=== PATIENT | male | born 1950 | race Caucasian/White ===

== ENCOUNTER 2017-11-26 06:01 | Day surgery (SDC) | payer MEDICARE ==
--- NOTE | 2017-11-22 18:56 | HP ---
CC: Dr. Mynor Carreon; Dr. Blake Blood * ADMISSION HISTORY AND PHYSICAL: DATE OF ADMISSION: 11/26/17 ATTENDING SURGEON: Dr. Farhat Cramer.* (DICTATED BY BRANDT EMMANUEL) CHIEF COMPLAINT: Right inguinal hernia. HISTORY OF PRESENT ILLNESS: This is a 67-year-old male with right inguinal hernia for at least the past few years. He had had a repair of the hernia as a teenager. Sometime in the past couple of years, he noticed a bulge in the right groin that has increased in size somewhat but not dramatically. He has been using a truss with some success, though would prefer to no longer have to use it. He does have to manually reduce the hernia before applying the truss. He has not had any symptoms to suggest incarceration or strangulation. He was seen in the office by Dr. Cramer on 11/07/17 at which time exam confirmed the presence of a reducible, mildly tender right apparent indirect inguinal hernia. The patient had undergone previous primary left herniorrhaphy in [address] Cramer discussed options with the patient including the indications, risks, benefits, and alternatives of repair. The patient would like to proceed as scheduled with open repair of right inguinal hernia with mesh. PAST MEDICAL HISTORY: 1. Atrial fibrillation (persistent after maze procedure but only on aspirin therapy). He is status post mitral valve replacement (porcine valve November 2005 and tricuspid valve repair at that same time). Atrial appendage was resected also at that time. 2. GERD. 3. Hypothyroidism (on replacement). 4. Hyperlipidemia. 5. BPH. 6. History of peptic ulcer disease (required transfusion and was treated for H. pylori without history of recurrence). 7. Subdural hematoma while anticoagulated, May 2016, requiring craniotomy. 8. He has left-sided paresthesias. His chart history indicates thoracic aortic ectasia. He is followed yearly by Dr. Blood. PAST SURGICAL HISTORY: Previous surgeries include: 1. Tonsillectomy and appendectomy, both remotely. 2. Prior hernia repairs as noted above. 3. Craniotomy for subdural hematoma. 4. Mitral valve replacement and tricuspid valve repair as well as maze procedure as noted above. CURRENT MEDICATIONS: 1. Metoprolol 25 mg 1-1/2 half tablets b.i.d. 2. Levothyroxine 25 mcg once daily. 3. Iferex 150 mg b.i.d. 4. Aspirin 81 mg once daily (the patient will continue perioperatively). 5. Tamsulosin 0.4 mg once daily. 6. Vitamin D 1000 IU once daily. 7. Multivitamin once daily. 8. Occasional garlic supplement (advised to hold preoperatively). DRUG ALLERGIES: DOXYCYCLINE (GI side effects), BIAXIN (GI side effects), RAMIPRIL (dry throat), LEVOFLOXACIN (tendinitis). FAMILY HISTORY: Negative for anesthesia problems, bleeding, or clotting disorder. SOCIAL HISTORY: The patient is . 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 He is a former smoker and quit in 1972 for a total of less than 7-pack-year history. He drinks alcohol occasionally but not daily. He denies other recreational drug use. REVIEW OF SYSTEMS: General: No recent constitutional symptoms or acute illnesses. Eyes: No recent changes. He does have regular exams. Ears, Nose, Throat: No recent changes. He does have some allergic rhinitis symptoms. Cardiovascular: No chest pain, palpitations. He is unsure if he still has paroxysmal atrial fibrillation. The patient takes metoprolol for rate control. Respiratory: No history of asthma, chronic cough, shortness of breath. GI: Minimal and infrequent GERD symptoms for which he uses [id number]-tji-lswydnz calcium carbonate p.r.n. No lower GI symptoms. Colonoscopy done within the past 10 years, normal exam. We recommended 10-year followup. : BPH, maintained on tamsulosin. No additional problems reported. Integument: No specific skin lesions or rashes or concern. Endocrine: He is on thyroid replacement. No history of diabetes. Hematological: History of iron deficiency anemia, though most recent hemoglobin was above 15. He does have lab work ordered for iron studies. Neuro: He does have paresthesias on the entire left side of his body including head and neck. He has been evaluated by Dr. Juárez from Neurology. Psychiatric: No problems reported. Remainder of review of systems is negative. PHYSICAL EXAMINATION GENERAL: Well-nourished, well-developed male, in no acute distress. VITAL SIGNS: Height 69 inches, weight 134 pounds, blood pressure 112/66, pulse 60 and regular, respirations 16, temperature 99.1. HEENT: Pupils are equal and round, reactive. EOMs intact. Conjunctivae pink. Oropharynx: Mucous membranes are moist. Teeth in good repair. He has a couple of permanent caps as well as crowns. No intraoral lesions noted. NECK: No lymphadenopathy or thyromegaly. No masses. LUNGS: Clear to auscultation. No rales or wheezes. HEART: Regular rate and rhythm. No murmur appreciated. Well-healed median sternotomy incision. ABDOMEN: Soft, nontender to palpation. No palpable masses or organomegaly. Well- healed bilateral inguinal scars from prior surgeries per Dr. Cramer's exam. GENITALIA: No other abnormalities of the external genitalia. RECTAL: Not done. No problems reported. BACK: No spinous process or CVA tenderness. EXTREMITIES: No edema. NEUROLOGICAL: Grossly intact, though he occasionally has some difficulty searching for words to express himself. He otherwise is oriented and has normal judgment. SKIN: Warm and dry. No suspicious rashes or lesions. IMPRESSION: Right inguinal hernia (recurrent). PLAN: Open repair, recurrent right inguinal hernia with mesh. BRANDT EMMANUEL [id number]/[facility] #: [id number] TISHA
[~2017-11-26 06:01] MED LIST: Buffered Lidocaine 0.9% SYRIN* 5 ML/SYR SYRINGE INTRADERM ONE; Famotidine TAB* 20 MG PO ONE
[2017-11-26] MEDS ORDERED: ceFAZolin 2 GM PREMIX (*) 2 GM/50 ML BAG IVPB ONE (06:06)
[2017-11-26] MEDS ORDERED: Famotidine TAB* 20 MG ONE (06:06)
[2017-11-26] MEDS ORDERED: Bupivacaine 0.25% SDV* 30 ML ONE (07:04)
[2017-11-26] MEDS ORDERED: Lidocain 1% EPI 1:100,000 * 30 ML MDV ONE (07:04)
[2017-11-26] MEDS ORDERED: fentaNYL* 50 MCG/ML 2 ML VIAL (100 MCG VIAL) ONE (07:26)
[2017-11-26] MEDS ORDERED: Midazolam* 1 MG/ML 5 ML VIAL (5 MG) ONE (07:26)
[2017-11-26] MEDS ORDERED: Ondansetron INJ* 2 MG/ML VIAL ONE (07:50)
[2017-11-26] MEDS ORDERED: Lidocaine 2% PF * 5 ML VIAL ONE (07:50)
[2017-11-26] MEDS ORDERED: Ketorolac INJ* 30 MG/ML 1 ML VIAL ONE (07:50)
[2017-11-26] MEDS ORDERED: Dexamethasone IV* 4 MG/ML 1 ML (4 MG) ONE (07:50)
[2017-11-26] MEDS ORDERED: Propofol* 10 MG/ML 20 ML BTL IV PUSH ONE (07:50)
[2017-11-26] MEDS ORDERED: Naloxone* 0.4 MG/ML 1 ML VIAL IV PRN (08:04)
[2017-11-26] MEDS ORDERED: Acetaminophen TAB* 325 MG PO PRN (08:04)
[2017-11-26] MEDS ORDERED: HYDROmorphone INJ* 1 MG/ML CARPUJECT SYRINGE IV PRN (08:04)
[2017-11-26 10:03] VITALS: BP 94/63
--- NOTE | 2017-11-27 00:03 | OP ---
CC: [facility]; Dr. Mynor Carreon, Internal Medicine* OPERATIVE REPORT: DATE OF OPERATION: 11/26/17 - [facility] DATE OF : 50 SURGEON: Farhat Cramer MD DELIVERY MANAGER: Renetta Flores NP ANESTHESIOLOGIST: Dr. Dominguez. ANESTHESIA: Local with monitored anesthesia care. PRE-OP DIAGNOSIS: Recurrent right inguinal hernia. POST-OP DIAGNOSIS: Recurrent right direct inguinal hernia. OPERATIVE PROCEDURE: Open repair with mesh of a recurrent right direct inguinal hernia. ESTIMATED BLOOD LOSS: Minimal. SPECIMENS: None. COMPLICATIONS: None. DRAINS: None. WOUND CLASSIFICATION: I. DESCRIPTION OF PROCEDURE: Written informed consent was obtained, the right groin was marked with indelible ink and preoperative antibiotics were administered. The patient was taken to the operating room, placed in the supine position. Sequential compression devices and warming blanket were applied. Anesthesia was administered in the right groin and lower abdomen were prepped and draped in the usual sterile fashion. Time-out verification was completed. A 0.25% Marcaine mixed with 1% lidocaine was then infiltrated in the right groin several fingerbreadths above the inguinal crease. The patient had a previous open primary repair many years ago and I made an oblique incision about a centimeter above the previous incision, carried this down through the subcutaneous tissue. We were able to identify sutures in the external oblique aponeurosis and this was opened sharply using a 15-blade knife. We were able to dissect the underlying spermatic cord of the external oblique aponeurosis. I did identify the iliohypogastric nerve and this was quite scarred and I did resect this up to the area laterally where it emerged from the muscle body and is far distally is possible. We were then able to work more medially and identified the spermatic cord and encircled this with a one quarter-inch [place] drain without difficulty. There was some scar tissue, but it was matured and there were some easily identifiable tissue planes as well. The spermatic cord was then dissected off what appeared to be a recurrent direct inguinal hernia, which was medial in the direct space of only about a 1.5 -cm in size. The hernia sac was down into the neck and it was easily reduced and I closed the scar tissue and fascial defect with 2 interrupted 0 Vicryl sutures. The spermatic cord and a vas deferens was identified and protected from injury. There did not appear to be an indirect inguinal hernia. Next, the ProGrip Covidien mesh was then placed and sutured to the pubic tubercle with an 0 Vicryl suture. It was then placed in usual fashion to cover the direct and indirect spaces. I sutured it to the conjoint tendon superiorly with several 0 Vicryl suture and also in one place to the inguinal ligament inferiorly. The mesh sat nicely, reconstructed the internal ring nicely, and covered the direct space. Hemostasis was then assured. The external oblique aponeurosis was closed with a running 3-0 Vicryl suture. The subcutaneous tissue was closed with a running 3-0 Vicryl suture. The skin was approximated with a subcuticular 4-0 Vicryl suture. Steri-Strips and sterile dressings were applied. The patient tolerated the procedure well, was taken to the recovery room in stable condition. [id number]/[facility] #: [id number] TISHA
== END 2017-11-26 10:24 | disposition home or self-care (01) ==
LOC: OR 06:01
PROVIDERS: ATTEND Surgery
DX: K40.91 Unilateral inguinal hernia, without obstruction or gangrene, recurrent (principal); I48.2 Chronic atrial fibrillation; Z79.82 Long term (current) use of aspirin; Z95.2 Presence of prosthetic heart valve; E03.9 Hypothyroidism, unspecified; E78.5 Hyperlipidemia, unspecified; Z86.73 Personal history of transient ischemic attack (TIA), and cerebral infarction without residual deficits
CPT/HCPCS: A9270-GY; C1781; J0690; J1100; J1885; J2250; J2405; J2704; J3010

== ENCOUNTER 2017-12-08 11:38 | Emergency (ER) | payer BC, MEDICARE ==
--- NOTE | 2017-12-08 12:13 | UC ---
Skin Complaint HPI - HPI Summary HPI Summary: 67 yo WM presents with tick bite to left flank that happened 1 week ago. Pt's removed the tick. He is here today because he still has a scab to the area and is concerned about this. Denies fever, chills, headache, joint pain/ swelling. - History of Current Complaint Time Seen by Provider: 12/08/17 12:12 Stated Complaint: TICK BITE Hx Obtained From: Patient Onset/Duration: Sudden Onset Skin Exposure Onset/Duration: Days Ago Current Severity: None - Allergy/Home Medications Allergies/Adverse Reactions: Allergies Allergy/AdvReac Type Severity Reaction Status Date / Time cat dander Allergy Severe sneezing, Verified 12/08/17 12:33 clarithromycin Allergy Severe GI Upset Verified 12/08/17 12:33 levofloxacin Allergy Severe Joint Pain Verified 12/08/17 12:33 doxycycline Allergy Intermediate Vomiting Verified 12/08/17 12:33 ramipril Allergy Intermediate Difficulty Verified 12/08/17 12:33 Swallowing PACER WIRES - NO MRI Allergy Severe See Comment Uncoded 12/08/17 12:33 Home Medications: Home Medications Iron,Carb/Vit C/Vit B12/Folic [Iron 100 Plus] 1.5 tab PO 12/08/17 [History] Review of Systems Constitutional: Negative Skin: Other - Tick bite Eyes: Negative ENT: Negative Respiratory: Negative Cardiovascular: Negative Gastrointestinal: Negative Neurovascular: Negative Neurological: Negative Psychological: Negative All Other Systems Reviewed And Are Negative: Yes PMH/Surg Hx/FS Hx/Imm Hx - Additional Past Medical History Additional PMH: BPH Endocrine History: Hypothyroidism Cardiovascular History: Hypertension Other History Of: Anticoagulant Therapy - Surgical History Surgical History: Yes Surgery Procedure, Year, and Place: hernia repair x2. valve replacement. carotid stent. tonsils in grade school. open heart surgery 10/2015 SUBDURAL EVACUATION 05/2016. CRANIOSTOMY MAY 2016 - Family History Known Family History: Negative: Cardiac Disease, Hypertension, Diabetes - Social History Occupation: Retired Lives: With Family Alcohol Use: Occasionally Substance Use Type: None Smoking Status (MU): Former Smoker Type: Cigarettes Amount Used/How Often: smoked for 7 years approx, less than 1 ppd every 3 days When Did the Patient Quit Smoking/Using Tobacco: 1972 - Immunization History Most Recent Influenza Vaccination: 04/2016 Most Recent Tetanus Shot: Unknown Most Recent Pneumonia Vaccination: Patient due to receive 09/2016 Physical Exam - Summary Physical Exam Summary: GENERAL: NAD. WDWN. No pain distress. SKIN: Left flank: there is a 2mm healing scab with no surrounding erythema or edema. No streaking, bleeding, or drainage. NECK: Supple. Nontender. No lymphadenopathy. CHEST: No accessory muscle use. Breathing comfortably and in no distress. CV: RRR. Without m/r/g. Pulses intact. Brisk cap refill. NEURO: Alert. CN II-XII grossly intact. PSYCH: Age appropriate behavior. Triage Information Reviewed: Yes Course/Dx - Course Course Of Treatment: Tick bite. Tick was removed at the time of bite 1 week ago. Bite site looks to be healing well. No treatment needed. - Diagnoses Provider Diagnoses: Tick bite left flank Discharge - Sign-Out/Discharge Documenting (check all that apply): Discharge/Admit/Transfer - Discharge Plan Condition: Stable Disposition: HOME Patient Education Materials: Tick Bite (ED) Referrals: Mynor Carreon MD [Primary Care Provider] - Additional Instructions: TICK BITE: You have been bitten by a tick. Once the tick is removed, these "bites" usually cause no problems. Tick fever, tick paralysis, [place] Spotted fever, and Lyme disease are uncommon -- but you should mention this tick bite to your doctor if you develop unusual symptoms in the next several weeks. If you develop any of the following, please see your physician promptly: (1) Fever, chills, or generalized malaise associated with a headache. (2) A red round area at the site of the bite (or elsewhere) (3) Joint pain, joint swelling or generalized weakness. (4) Redness, swelling, or drainage at the site of the bite. - Billing Disposition and Condition Condition: STABLE Disposition: HOME
[2017-12-08 12:33] VITALS: BP 107/67
== END 2017-12-08 12:45 | disposition home or self-care (01) ==
LOC: UCEAST 11:38
DX: S30.861A Insect bite (nonvenomous) of abdominal wall, initial encounter (principal); W57.XXXA Bitten or stung by nonvenomous insect and other nonvenomous arthropods, initial encounter; Y93.9 Activity, unspecified; Y92.9 Unspecified place or not applicable; E03.9 Hypothyroidism, unspecified; I10 Essential (primary) hypertension; N40.0 Benign prostatic hyperplasia without lower urinary tract symptoms; Z79.01 Long term (current) use of anticoagulants; Z95.2 Presence of prosthetic heart valve; Z95.5 Presence of coronary angioplasty implant and graft; Z87.891 Personal history of nicotine dependence; Z88.1 Allergy status to other antibiotic agents
CPT/HCPCS: 99211; G0463

== ENCOUNTER 2023-10-02 11:01 | Inpatient (IN) ==
[2023-10-02 13:32] LABS: ABS Basophils 0.1 10^3/uL (0.0-0.1); ABS Lymphocytes 0.6 10^3/uL (1.0-4.8); ABS Monocytes 0.5 10^3/uL (0.0-1.1); ABS Neutrophils 12.7 10^3/uL (1.5-7.6); ABS Nucleated RBC 0.01 10^3/ul; Eosinophil % 0.1 %; Hematocrit 41.2 % (38-53); Hemoglobin 13.9 g/dL (13.2-16.3); Lymphocyte % 4.6 %; Mean Corpuscular Hemoglobin 31.7 pg (27-33); Mean Corpuscular Hgb Conc 33.7 g/dL (31-36); Mean Corpuscular Volume 94.1 fL (80-97); Mean Platelet Volume 7.9 fL (7.5-11.2); Nucleated Red Blood Cells % 0.1 %/100WBC (0.0-0.8); Platelet Count 268 10^3/uL (150-450); Red Blood Count 4.38 10^6/uL (4.06-5.63); Red Cell Distribution Width 14.1 % (12-17); White Blood Count 14.1 10^3/uL (3.6-10.2)
[2023-10-02] MEDS: Metoprolol Tartrate 5 mg VIAL 5 ml VIAL (1 mg/ml) IV ONE (13:36)
[2023-10-02] MEDS: Iodixanol (CONTRAST) 320 MG/ML 100 ML SDV IV ONE (13:55)
[2023-10-02 14:06] LABS: Albumin/Globulin Ratio 0.9 (1-3); Calcium 8.7 mg/dL (8.6-10.3); Creatinine, Serum 0.48 mg/dL (0.67-1.17); Globulin 3.3 g/dL (2-4); Magnesium 1.8 mg/dL (1.9-2.7); Potassium 4.2 mmol/L (3.5-5.0); Total Bilirubin 0.9 mg/dL (0.2-1.0); Total Protein 6.3 g/dL (6.4-8.9)
[2023-10-02 14:15] LABS: TSH Ultra Thyroid Stim Horm 3.59 mcIU/mL (0.34-5.60)
[2023-10-02] MEDS: Lactated Ringers 1000 ml BAG 1,000 ML IV ONE (14:49)
[2023-10-02 15:30] LABS: High Sensitivity Troponin 1 Hr 29 pg/mL (<20)
[2023-10-02 17:29] LABS: Urine Appearance Clear; Urine Bilirubin Negative (Negative); Urine Blood Trace (Negative); Urine Color Light-Yellow; Urine Glucose Negative (Negative); Urine Ketones 1+ (Negative); Urine Nitrite Negative (Negative); Urine Protein Negative (Negative); Urine Specific Gravity 1.028 (1.002-1.030); Urine Urobilinogen Negative (Negative); Urine pH 7.5 (5.0-8.0)
[2023-10-03] MEDS: Metoprolol Tartrate 5 mg VIAL 5 ml VIAL (1 mg/ml) IV ONE (00:14)
[2023-10-03] MEDS: Enoxaparin 40 MG/0.4 ML SYR SUBCUT SCH (04:47)
[2023-10-03] MEDS ORDERED: Morphine 2 MG/ML SYRINGE IV PRN (04:59)
[2023-10-03] MEDS: Lidocaine PATCH 5% PATCH TRANSDERM SCH ×2 (05:23→06:20)
[2023-10-03 06:36] LABS: ABS Basophils 0.1 10^3/uL (0.0-0.1); ABS Eosinophils 0.1 10^3/uL (0.0-0.5); ABS Lymphocytes 0.7 10^3/uL (1.0-4.8); ABS Monocytes 0.7 10^3/uL (0.0-1.1); ABS Neutrophils 10.7 10^3/uL (1.5-7.6); ABS Nucleated RBC 0.01 10^3/ul; Eosinophil % 0.4 %; Hematocrit 41.3 % (38-53); Hemoglobin 14.1 g/dL (13.2-16.3); Lymphocyte % 5.5 %; Mean Corpuscular Hemoglobin 32.4 pg (27-33); Mean Corpuscular Hgb Conc 34.3 g/dL (31-36); Mean Corpuscular Volume 94.5 fL (80-97); Mean Platelet Volume 7.2 fL (7.5-11.2); Platelet Count 249 10^3/uL (150-450); Red Blood Count 4.36 10^6/uL (4.06-5.63); Red Cell Distribution Width 14.6 % (12-17); White Blood Count 12.2 10^3/uL (3.6-10.2)
[2023-10-03 07:23] LABS: Calcium 8.5 mg/dL (8.6-10.3); Creatinine, Serum 0.45 mg/dL (0.67-1.17); HDL Cholesterol 28.4 mg/dL; Magnesium 1.7 mg/dL (1.9-2.7); Phosphorus 2.5 mg/dL (2.5-5.0); Potassium 4.1 mmol/L (3.5-5.0); eGFR CKD-EPI 111.2 (>60)
[2023-10-03] MEDS: Magnesium Sulfate IV 1GM/100ML 1 GM/100 ML BAG IV ONE (08:38)
[2023-10-03] MEDS: Cholecalciferol (VIT D3) 1,000 unit TAB PO SCH (08:39)
[2023-10-03] MEDS: Aspirin EC 81 mg TAB.EC (enteric coated) PO SCH (08:39)
[2023-10-03 10:28] LABS: Folate 8.19 ng/mL (5.90-24.80)
[2023-10-03] MEDS: Metoprolol Tartrate 5 mg VIAL 5 ml VIAL (1 mg/ml) IV PRN (12:38)
[2023-10-03] MEDS: Albuterol HFA INHALER 8 gm MDI INH SCH (13:05)
[2023-10-03] MEDS ORDERED: Albuterol HFA INHALER 8 gm MDI INH PRN (20:56)
[2023-10-03] MEDS: Lactated Ringers 1000 ml BAG 1,000 ML IV SCH (23:22)
[2023-10-03] MEDS: Vancomycin 1,000 MG in NS 0.9% 250 ml 250 ML IVPB ONE (23:22)
[2023-10-04] MEDS: Metoprolol Tartrate 5 mg VIAL 5 ml VIAL (1 mg/ml) IV ONE ×2 (03:49→07:11)
[2023-10-04] MEDS ORDERED: Vancomycin per Pharmacy 1 EA NOTE FOLLOW UP SCH (05:00)
[2023-10-04 05:47] LABS: ABS Basophils 0.1 10^3/uL (0.0-0.1); ABS Lymphocytes 0.5 10^3/uL (1.0-4.8); ABS Monocytes 0.9 10^3/uL (0.0-1.1); ABS Neutrophils 17.4 10^3/uL (1.5-7.6); ABS Nucleated RBC 0.01 10^3/ul; Hematocrit 42.6 % (38-53); Hemoglobin 14.9 g/dL (13.2-16.3); Lymphocyte % 2.7 %; Mean Corpuscular Hemoglobin 32.6 pg (27-33); Mean Platelet Volume 7.6 fL (7.5-11.2); Nucleated Red Blood Cells % 0.1 %/100WBC (0.0-0.8); Platelet Count 271 10^3/uL (150-450); Red Blood Count 4.58 10^6/uL (4.06-5.63); Red Cell Distribution Width 14.5 % (12-17); White Blood Count 18.9 10^3/uL (3.6-10.2)
[2023-10-04 06:14] LABS: Calcium 8.6 mg/dL (8.6-10.3); Creatinine, Serum 0.47 mg/dL (0.67-1.17); Magnesium 1.8 mg/dL (1.9-2.7); Potassium 4.5 mmol/L (3.5-5.0); eGFR CKD-EPI 109.7 (>60)
[2023-10-04] MEDS: Vancomycin 1000 MG in NS 0.9% 250 ML IVPB SCH (08:24)
[2023-10-04] MEDS ORDERED: cefTRIAXone 1 gm/50 mL D5W 1 GM/50 ML BAG IV SCH (08:30)
[2023-10-04] MEDS: cefTRIAXone 2 gm/50 mL D5W 2 GM/50 ML BAG IV SCH (10:18)
[2023-10-04] MEDS: Magnesium Sulfate 2 gm BAG 2 GM/50 ML BAG IVPB ONE (11:16)
[2023-10-04] MEDS: Enoxaparin 60 MG/0.6 ML SYR SUBCUT ONE (16:11)
[2023-10-05] MEDS ORDERED: Vancomycin Trough Check NOTE FOLLOW UP ONE (07:30)
[2023-10-05 08:05] LABS: ABS Basophils 0.1 10^3/uL (0.0-0.1); ABS Lymphocytes 0.8 10^3/uL (1.0-4.8); ABS Monocytes 0.8 10^3/uL (0.0-1.1); ABS Neutrophils 10.3 10^3/uL (1.5-7.6); ABS Nucleated RBC 0.03 10^3/ul; Eosinophil % 0.2 %; Hematocrit 41.8 % (38-53); Hemoglobin 14.5 g/dL (13.2-16.3); Lymphocyte % 6.7 %; Mean Corpuscular Hemoglobin 32.1 pg (27-33); Mean Corpuscular Hgb Conc 34.7 g/dL (31-36); Mean Corpuscular Volume 92.6 fL (80-97); Mean Platelet Volume 7.7 fL (7.5-11.2); Nucleated Red Blood Cells % 0.2 %/100WBC (0.0-0.8); Platelet Count 274 10^3/uL (150-450); Red Blood Count 4.51 10^6/uL (4.06-5.63); Red Cell Distribution Width 14.6 % (12-17)
[2023-10-05] MEDS ORDERED: Flumazenil 0.5 mg/5 ml 0.1 MG/ML 5 ml VIAL ONE (08:08)
[2023-10-05] MEDS ORDERED: Midazolam 5 mg/5 ml VIAL 1 mg/ml 5 ml VIAL (5 mg) ONE (08:08)
[2023-10-05] MEDS ORDERED: Naloxone 0.4 mg VIAL 0.4 mg/ml 1 ml VIAL ONE (08:08)
[2023-10-05] MEDS ORDERED: fentaNYL 100 mcg/2 ml 50 MCG/ML VIAL ONE (08:08)
[2023-10-05] MEDS ORDERED: Naloxone 0.4 mg VIAL 0.4 mg/ml 1 ml VIAL IV PUSH PRN (08:21)
[2023-10-05] MEDS ORDERED: Flumazenil 0.5 mg/5 ml 0.1 MG/ML 5 ml VIAL IV PRN (08:21)
[2023-10-05 08:27] LABS: Calcium 8.5 mg/dL (8.6-10.3); Creatinine, Serum 0.45 mg/dL (0.67-1.17); Magnesium 1.9 mg/dL (1.9-2.7); Potassium 4.4 mmol/L (3.5-5.0); eGFR CKD-EPI 111.2 (>60)
[2023-10-05] MEDS ORDERED: Metoprolol Tartrate 5 mg VIAL 5 ml VIAL (1 mg/ml) ONE (08:48)
[2023-10-05] MEDS: fentaNYL 100 mcg/2 ml 50 MCG/ML VIAL IV SLOW PU ONE (08:55)
[2023-10-05] MEDS: Midazolam 10 mg/10 ml VIAL 1 mg/ml 10 ml VIAL (10 mg) IV SLOW PU ONE (08:56)
[2023-10-05] MEDS: guaiFENesin DM SUGAR FREE 100 MG/10 MG 5 ML UDC PO PRN (12:04)
[2023-10-05 13:12] LABS: Urine Osmo 476 mOsm/kg (150-1150)
[2023-10-05] MEDS: Enoxaparin 100 MG/ML SYR SUBCUT SCH (16:02)
[2023-10-05] MEDS: Iodixanol (CONTRAST) 320 MG/ML 100 ML SDV IV ONE (17:46)
[2023-10-05 18:11] LABS: ABS Lymphocytes 0.7 10^3/uL (1.0-4.8); ABS Monocytes 0.8 10^3/uL (0.0-1.1); ABS Neutrophils 14.2 10^3/uL (1.5-7.6); ABS Nucleated RBC 0.01 10^3/ul; Hematocrit 42.9 % (38-53); Lymphocyte % 4.6 %; Mean Corpuscular Hemoglobin 32.4 pg (27-33); Mean Corpuscular Volume 92.6 fL (80-97); Mean Platelet Volume 7.3 fL (7.5-11.2); Nucleated Red Blood Cells % 0.1 %/100WBC (0.0-0.8); Platelet Count 289 10^3/uL (150-450); Red Blood Count 4.63 10^6/uL (4.06-5.63); Red Cell Distribution Width 14.8 % (12-17); White Blood Count 15.8 10^3/uL (3.6-10.2)
[2023-10-05 18:25] LABS: Activated Partial Thrombo Time 39.2 seconds (26.0-38.0); INR 1.13 (0.83-1.13)
[2023-10-05 18:40] LABS: Albumin 3.2 g/dL (3.2-5.2); Albumin/Globulin Ratio 0.9 (1-3); Calcium 8.6 mg/dL (8.6-10.3); Creatinine, Serum 0.43 mg/dL (0.67-1.17); Globulin 3.4 g/dL (2-4); Potassium 4.6 mmol/L (3.5-5.0); Total Bilirubin 0.8 mg/dL (0.2-1.0); Total Protein 6.6 g/dL (6.4-8.9); eGFR CKD-EPI 112.7 (>60)
[2023-10-05 18:56] LABS: Osmolality Serum 266 mOsm/kg (275-295)
[2023-10-05 19:53] LABS: High Sensitivity Troponin 1 Hr 13 pg/mL (<20)
[2023-10-05] MEDS: Ure-Na 15 GM POWD.PACK PO SCH (21:00)
[2023-10-05] MEDS ORDERED: Sodium Bicarbonate 8.4% SYR 50 ml SYRINGE ONE (23:03)
[2023-10-05] MEDS ORDERED: EPINEPHrine SYR 0.1MG/ML 10 ml SYRINGE IV ONE (23:03)
[2023-10-05 23:35] LABS: Calcium 9.1 mg/dL (8.6-10.3); Creatinine, Serum 0.52 mg/dL (0.67-1.17); Potassium 5.1 mmol/L (3.5-5.0); eGFR CKD-EPI 106.4 (>60)
[2023-10-05] MEDS: Norepinephrine 4 MG/250mL D5W 4,000 MCG/250 ML BAG IV SCH (23:35)
[2023-10-06] MEDS: fentaNYL 100 mcg/2 ml 50 MCG/ML VIAL IV SLOW PU PRN (00:10)
[2023-10-06] MEDS: fentaNYL 100 mcg/2 ml 50 MCG/ML VIAL ONE (00:39)
[2023-10-06] MEDS: fentaNYL INFUSION 50 mcg/mL VL 2,500 MCG/50 ML VIAL IV SCH ×2 (00:51→09:09)
[2023-10-06 01:20] LABS: Resp Rate 18
[2023-10-06 01:22] LABS: PCO2 Arterial 45 mmHg (35-45); PO2 Arterial 263 mmHg (80-100)
[2023-10-06 01:23] LABS: Hematocrit 40.1 % (38-53); Hemoglobin 13.7 g/dL (13.2-16.3); Mean Corpuscular Hemoglobin 31.7 pg (27-33); Mean Corpuscular Hgb Conc 34.2 g/dL (31-36); Mean Corpuscular Volume 92.7 fL (80-97); Mean Platelet Volume 7.4 fL (7.5-11.2); Platelet Count 288 10^3/uL (150-450); Red Blood Count 4.33 10^6/uL (4.06-5.63); Red Cell Distribution Width 14.6 % (12-17); White Blood Count 31.8 10^3/uL (3.6-10.2)
[2023-10-06 01:36] LABS: Urine Appearance Turbid; Urine Bilirubin Negative (Negative); Urine Blood 3+ (Negative); Urine Color Yellow; Urine Glucose Negative (Negative); Urine Ketones Negative (Negative); Urine Nitrite Negative (Negative); Urine Protein 2+ (>=100 mg/dL) (Negative); Urine Specific Gravity 1.029 (1.002-1.030); Urine Urobilinogen Negative (Negative)
[2023-10-06] MEDS: Propofol 10 mg/ml 100 ML BTL 1,000 MG/100 ML BTL ONE (01:36)
[2023-10-06 01:40] LABS: Urine Bacteria 1+ /HPF (Absent); Urine Red Blood Cell 3+(>10/hpf) /HPF (0-Trace); Urine Squamous Epithelial Cell Present /HPF (Absent); Urine White Blood Cell 1+(6-10/hpf) /HPF (0-Trace)
[2023-10-06] MEDS: Propofol 10 mg/ml 100 ML BTL 1,000 MG/100 ML BTL IV SCH (01:43)
[2023-10-06] MEDS: Midazolam 5 mg/5 ml VIAL 1 mg/ml 5 ml VIAL (5 mg) IV SLOW PU ONE (02:07)
[2023-10-06 02:08] LABS: Albumin 2.7 g/dL (3.2-5.2); Albumin/Globulin Ratio 0.9 (1-3); Calcium 8.9 mg/dL (8.6-10.3); Creatinine, Serum 0.53 mg/dL (0.67-1.17); Globulin 2.9 g/dL (2-4); Potassium 4.5 mmol/L (3.5-5.0); Total Bilirubin 1.1 mg/dL (0.2-1.0); Total Protein 5.6 g/dL (6.4-8.9); eGFR CKD-EPI 105.8 (>60)
[2023-10-06 02:11] LABS: ABS Lymphocytes 0.5 10^3/uL (1.0-4.8); ABS Monocytes 0.8 10^3/uL (0.0-1.1); ABS Neutrophils 30.3 10^3/uL (1.5-7.6); ABS Nucleated RBC 0.02 10^3/ul; Eosinophil % 0.1 %; Lymphocyte % 1.7 %; Nucleated Red Blood Cells % 0.1 %/100WBC (0.0-0.8)
[2023-10-06] MEDS: Phenylephrine 40 mcg/mL 10mL (400mcg) SYRINGE IV PUSH PRN (02:20)
[2023-10-06] MEDS: VASOPRESSIN IVPREMIX BTL 40 UNIT/100 ML BTL IV SCH (02:34)
[2023-10-06] MEDS: NS 0.9% 1000 ml BAG 1,000 ML IV ONE (02:50)
[2023-10-06] MEDS: Midazolam 5 mg/5 ml VIAL 1 mg/ml 5 ml VIAL (5 mg) ONE (02:58)
[2023-10-06] MEDS: VASOPRESSIN IVPREMIX BTL 40 UNIT/100 ML BTL IV ONE (03:02)
[2023-10-06 03:06] LABS: INR 1.3 (0.83-1.13)
[2023-10-06] MEDS: Phenylephrine 40 mcg/mL 10mL (400mcg) SYRINGE ONE (03:07)
[2023-10-06 04:03] LABS: Hematocrit 38.7 % (38-53); Hemoglobin 13.7 g/dL (13.2-16.3); Mean Corpuscular Hemoglobin 32.9 pg (27-33); Mean Corpuscular Hgb Conc 35.4 g/dL (31-36); Mean Corpuscular Volume 92.9 fL (80-97); Mean Platelet Volume 7.5 fL (7.5-11.2); Platelet Count 326 10^3/uL (150-450); Red Blood Count 4.17 10^6/uL (4.06-5.63); Red Cell Distribution Width 14.6 % (12-17); White Blood Count 28.2 10^3/uL (3.6-10.2)
[2023-10-06 04:14] LABS: ABS Basophils 0.2 10^3/uL (0.0-0.1); ABS Lymphocytes 0.7 10^3/uL (1.0-4.8); ABS Monocytes 1.7 10^3/uL (0.0-1.1); ABS Neutrophils 25.6 10^3/uL (1.5-7.6); ABS Nucleated RBC 0.02 10^3/ul; Lymphocyte % 2.3 %; Nucleated Red Blood Cells % 0.1 %/100WBC (0.0-0.8)
[2023-10-06 04:29] LABS: High Sensitivity Troponin 1 Hr 2922 pg/mL (<20)
[2023-10-06 04:36] LABS: Calcium 8.7 mg/dL (8.6-10.3); Creatinine, Serum 0.49 mg/dL (0.67-1.17); Magnesium 1.8 mg/dL (1.9-2.7); Potassium 4.5 mmol/L (3.5-5.0); eGFR CKD-EPI 108.4 (>60)
[2023-10-06] MEDS: Iohexol 350 (CONTRAST) 500 ML MDV IV ONE (04:57)
[2023-10-06 05:56] LABS: Resp Rate 18
[2023-10-06 05:58] LABS: PCO2 Arterial 35 mmHg (35-45); PO2 Arterial 170 mmHg (80-100)
[2023-10-06] MEDS: Chlorhexidine MOUTHWASH 0.12% 15 ML UDC TOPICAL SCH (05:59)
[2023-10-06] MEDS: Pantoprazole VIAL 40 MG VIAL IV SCH (08:15)
[2023-10-06] MEDS: NS 0.9% 500 ml BAG 500 ML IV ONE ×2 (11:13→16:35)
[2023-10-06] MEDS: Metoprolol Tartrate 5 mg VIAL 5 ml VIAL (1 mg/ml) IV PRN (12:32)
[2023-10-06] MEDS: Magnesium Sulfate 2 gm BAG 2 GM/50 ML BAG IVPB ONE (13:23)
[2023-10-06 13:27] LABS: ABS Basophils 0.1 10^3/uL (0.0-0.1); ABS Eosinophils 0.1 10^3/uL (0.0-0.5); ABS Lymphocytes 1.6 10^3/uL (1.0-4.8); ABS Monocytes 1.1 10^3/uL (0.0-1.1); ABS Neutrophils 12.9 10^3/uL (1.5-7.6); ABS Nucleated RBC 0.03 10^3/ul; Eosinophil % 0.4 %; Hematocrit 37.1 % (38-53); Hemoglobin 12.6 g/dL (13.2-16.3); Lymphocyte % 10.1 %; Mean Corpuscular Hemoglobin 31.6 pg (27-33); Mean Corpuscular Volume 92.9 fL (80-97); Mean Platelet Volume 7.1 fL (7.5-11.2); Nucleated Red Blood Cells % 0.2 %/100WBC (0.0-0.8); Platelet Count 277 10^3/uL (150-450); Red Blood Count 3.99 10^6/uL (4.06-5.63); Red Cell Distribution Width 14.6 % (12-17); White Blood Count 15.7 10^3/uL (3.6-10.2)
[2023-10-06 14:19] LABS: Creatinine, Serum 0.5 mg/dL (0.67-1.17); Magnesium 1.7 mg/dL (1.9-2.7); Potassium 4.2 mmol/L (3.5-5.0); eGFR CKD-EPI 107.7 (>60)
[2023-10-06 15:37] LABS: Anaplasma phagocytophilum Negative (Negative); B. miyamotoi PCR, B Negative (Negative); Babesia divergens/MO-1 Negative (Negative); Babesia ducani Negative (Negative); Ehrlichia chaffeensis Negative (Negative); Ehrlichia ewingii/canis Negative (Negative); Ehrlichia muris eauclairensis Negative (Negative)
[2023-10-06] MEDS: Norepinephrine *QUAD STRENGTH* 16 mg/250 mL NS PREMIX (ICU ONLY) IV SCH ×2 (23:16→23:31)
[2023-10-07] MEDS: Lactated Ringers 1000 ml BAG 750 ML IV ONE (00:17)
[2023-10-07] MEDS: PHENYLEPHRINE DRIP IVPREMIX 50 MG/250 ML BAG IV SCH (01:52)
[2023-10-07] MEDS: NS 0.9% 1000 ml BAG 1,000 ML IV ONE (02:41)
[2023-10-07] MEDS: Hydrocortisone INJ 100 MG/2ML 2 ML VIAL IV SCH (03:11)
[2023-10-07 03:21] LABS: Urine Osmo 152 mOsm/kg (150-1150)
[2023-10-07 05:17] LABS: Hematocrit 38.6 % (38-53); Hemoglobin 13.4 g/dL (13.2-16.3); Mean Corpuscular Hemoglobin 32.1 pg (27-33); Mean Corpuscular Hgb Conc 34.7 g/dL (31-36); Mean Corpuscular Volume 92.5 fL (80-97); Mean Platelet Volume 7.4 fL (7.5-11.2); Platelet Count 241 10^3/uL (150-450); Red Blood Count 4.17 10^6/uL (4.06-5.63); Red Cell Distribution Width 15.1 % (12-17); White Blood Count 16.5 10^3/uL (3.6-10.2)
[2023-10-07] MEDS: Levothyroxine 100 MCG/5 ML VIAL IV SCH (05:31)
[2023-10-07 05:45] LABS: Calcium 7.8 mg/dL (8.6-10.3); Creatinine, Serum 0.44 mg/dL (0.67-1.17); Magnesium 1.8 mg/dL (1.9-2.7); Potassium 4.1 mmol/L (3.5-5.0); eGFR CKD-EPI 111.9 (>60)
[2023-10-07] MEDS: Magnesium Sulfate 2 gm BAG 2 GM/50 ML BAG IVPB ONE (06:09)
[2023-10-07] MEDS ORDERED: .Amiodarone 24HR ONLY IV Protocol Order Note IV ONE (08:17)
[2023-10-07] MEDS: Amiodarone 360 MG IVPREMIX 360 MG/200 ML BAG IV SCH ×3 (08:21→14:43)
[2023-10-07] MEDS: Amiodarone 150 mg IVPREMIX 150 MG/100 ML BAG IV ONE (08:38)
[2023-10-07] MEDS ORDERED: Sulfur Hexaflouride MICROSPHR 25 MG VIAL ONE (10:34)
[2023-10-08 04:46] LABS: Hematocrit 33.6 % (38-53); Hemoglobin 11.7 g/dL (13.2-16.3); Mean Corpuscular Hemoglobin 32.3 pg (27-33); Mean Corpuscular Hgb Conc 34.9 g/dL (31-36); Mean Corpuscular Volume 92.4 fL (80-97); Mean Platelet Volume 7.3 fL (7.5-11.2); Platelet Count 219 10^3/uL (150-450); Red Blood Count 3.64 10^6/uL (4.06-5.63); Red Cell Distribution Width 14.7 % (12-17)
[2023-10-08 06:19] LABS: Calcium 7.8 mg/dL (8.6-10.3); Creatinine, Serum 0.4 mg/dL (0.67-1.17); eGFR CKD-EPI 115.2 (>60)
[2023-10-08] MEDS ORDERED: Amiodarone 360 MG IVPREMIX 360 MG/200 ML BAG IV SCH (08:20)
[2023-10-08] MEDS: Heparin 5000 UNITS/ML 1 mL VIAL SUBCUT SCH (11:31)
[2023-10-09 05:04] LABS: Hematocrit 30.9 % (38-53); Hemoglobin 10.8 g/dL (13.2-16.3); Mean Corpuscular Hemoglobin 32.3 pg (27-33); Mean Corpuscular Hgb Conc 34.8 g/dL (31-36); Mean Corpuscular Volume 92.6 fL (80-97); Platelet Count 217 10^3/uL (150-450); Red Blood Count 3.33 10^6/uL (4.06-5.63); White Blood Count 15.5 10^3/uL (3.6-10.2)
[2023-10-09 05:50] LABS: Calcium 7.7 mg/dL (8.6-10.3); Creatinine, Serum 0.47 mg/dL (0.67-1.17); Magnesium 1.7 mg/dL (1.9-2.7); Potassium 4.1 mmol/L (3.5-5.0); eGFR CKD-EPI 109.7 (>60)
[2023-10-09] MEDS: Magnesium Sulf 4 GM/100 ML IV 4,000 MG/100 ML BAG IVPB ONE (10:55)
[2023-10-09] MEDS: Metoprolol Tartrate 5 mg VIAL 5 ml VIAL (1 mg/ml) IV PRN (11:23)
[2023-10-10 05:05] LABS: Hematocrit 30.3 % (38-53); Hemoglobin 10.7 g/dL (13.2-16.3); Mean Corpuscular Hgb Conc 35.2 g/dL (31-36); Mean Corpuscular Volume 93.7 fL (80-97); Mean Platelet Volume 7.2 fL (7.5-11.2); Platelet Count 182 10^3/uL (150-450); Red Blood Count 3.23 10^6/uL (4.06-5.63); White Blood Count 12.7 10^3/uL (3.6-10.2)
[2023-10-10 05:43] LABS: Calcium 7.8 mg/dL (8.6-10.3); Creatinine, Serum 0.4 mg/dL (0.67-1.17); Potassium 4.1 mmol/L (3.5-5.0); eGFR CKD-EPI 115.2 (>60)
[2023-10-10] MEDS: Polyethylene Glycol 3350 17 GM PACKET NG TUBE SCH (10:22)
[2023-10-10] MEDS: Senna TAB 8.6 mg TAB NG TUBE SCH (10:22)
[2023-10-10] MEDS: Furosemide 20 mg/2 ml IV VIAL IV SLOW PU ONE (10:23)
[2023-10-10] MEDS: Iohexol 300 (CONTRAST) 10 ML SDV IV ONE (15:44)
[2023-10-10] MEDS ORDERED: Dextran 70/Hypromellose Tears Eye Drops 15 ml BTL (for Artificials Tears) BOTH EYES PRN (17:37)
[2023-10-10] MEDS: Metoprolol Tartrate 5 mg VIAL 5 ml VIAL (1 mg/ml) IV PRN (19:36)
[2023-10-11] MEDS: Morphine 2 MG/ML SYRINGE IV PRN (00:46)
[2023-10-11 05:48] LABS: Hemoglobin 10.6 g/dL (13.2-16.3); Mean Corpuscular Hemoglobin 32.2 pg (27-33); Mean Corpuscular Hgb Conc 34.1 g/dL (31-36); Mean Corpuscular Volume 94.3 fL (80-97); Mean Platelet Volume 7.2 fL (7.5-11.2); Platelet Count 213 10^3/uL (150-450); Red Blood Count 3.29 10^6/uL (4.06-5.63); Red Cell Distribution Width 15.5 % (12-17); White Blood Count 12.4 10^3/uL (3.6-10.2)
[2023-10-11 06:43] LABS: Creatinine, Serum 0.37 mg/dL (0.67-1.17); Magnesium 1.8 mg/dL (1.9-2.7); Potassium 4.5 mmol/L (3.5-5.0)
[2023-10-11] MEDS: Magnesium Sulfate 2 gm BAG 2 GM/50 ML BAG IVPB ONE (09:33)
[2023-10-11 13:05] VITALS: BP 163/98
[2023-10-11] MEDS: Morphine 10 MG/ML VIAL (1 ml) ONE (14:50)
[2023-10-11] MEDS: Midazolam 5 mg/5 ml VIAL 1 mg/ml 5 ml VIAL (5 mg) ONE (14:51)
== END 2023-10-11 11:56 | disposition expired | DRG 91 ==
LOC: ED 11:01 → EDHOLD 11:01 → SUATTDRO 22:53 → MED 10-03 11:00 → SUATTDRO 10-03 11:10 → MED 10-03 11:40 → ICU 10-05 23:55
PROVIDERS: ADMIT Internal Medicine; ATTEND Surgery Surgical Critical Care